=== PATIENT | female | born 1985 ===

== ENCOUNTER 2017-08-13 10:33 | Inpatient (IN) | payer MEDICAID, OTHER ==
[2017-08-13 10:59] VITALS: BMI 21.4
[2017-08-13] MEDS: Lactated Ringer's 1,000 ML IV SCH ×2 (11:30→12:00)
[2017-08-13 11:58] LABS: BASO # 0.1 K/uL (0.0-0.2); BASO % 0.4 % (0.0-2.0); EOS % 0.1 % (0.0-4.0); LYMPH # 1.6 K/uL (1.0-4.3); LYMPH % 12.8 % (20.0-40.0); MEAN CELL VOLUME 81.2 fl (81.0-99.0); MEAN CORPUSCULAR HEMOGLOBIN 26.3 pg (27.0-31.0); MEAN CORPUSCULAR HGB CONC 32.4 g/dL (33.0-37.0); MEAN PLATELET VOLUME 8.8 fl (7.2-11.7); MONO # 0.7 K/uL (0.0-0.8); MONO % 5.7 % (0.0-10.0); NEUT # 9.8 K/uL (1.8-7.0); NRBC % 0.1 % (0.0-0.0); RED CELL DISTRIBUTION WIDTH 21.5 % (11.5-14.5); WHITE BLOOD COUNT 12.1 K/uL (4.8-10.8)
[2017-08-13] MEDS ORDERED: Lidocaine 1% Inj (20ml) ONE (12:04)
[2017-08-13] MEDS ORDERED: Fentanyl/Bupivacaine HCl 250 ML EPI ONE (13:08)
[2017-08-13 13:52] VITALS: O2SAT 100
[2017-08-13] MEDS ORDERED: Lactated Ringer's 1,000 ML IV SCH ×2 (14:15→18:37)
[2017-08-13] MEDS ORDERED: Benzocaine/Menthol SPRAY TOP PRN ×2 (16:14→18:37)
[2017-08-13] MEDS ORDERED: Oxytocin 30 UNITS in Sodium Chloride 0.9% 500 ML IV ONE ×2 (16:54→17:23)
--- NOTE | 2017-08-13 17:16 | OBPN ---
Datetime: 08/13/2017 12:28 IP Progress Impression: Normal progression of labor Pool Provider: Negative Membranes, Provider: Intact Contraction Comments Provider: + Gestation - Est Wks by US: 39.0 Presentation-Admit: Vertex IP Progress Note Comment: Contacted [facility], spoke to Rosalinda in Women 's Services and requested records to be faxed over. Asked for GBS status over the phone, was informed it was not done. Annette PGY3 14:10 contacted by RN for patient experiencing palpitations and dizziness, bout of tachycardia in 140s which resolved within the minute. Patient was evaluated at bedside, states h/o panic attacks and multiple ED visits during current p regnancy to [facility] for similar complaint, last visit 1 month ago around 34 wks GA. Not on any medicatio n, denies h/o cardic issues. Denies cp, dizziness, sob, focal weakness at present time. O: VS normotensive, afebrile, normal rate (70s) O2 sat 98 on RA A/P Pt. stable at present time, good O2 sat, VSS, Sx resolved discussed with Dr. Fitch: EKG ordered, hospitalist consult spoke to hospitalist Dr. Vasques, will evaluate. Annette PGY3 Ob Hospitalist on-call...aware of above. KATERINE NICHD Accel Fetus A IP Provider: 15X15 FHR Category Provider Fetus A: Category I NICHD Variability Prov Fetus A: Moderate 6-25bpm Dilatation, Provider: 4-5 Effacement, Provider: 80 Station, Provider: -1
--- NOTE | 2017-08-13 17:18 | OBDS ---
DELIVERY PERSONNEL Nurse Firearms Specialist Certified: rolando Delivery Doctor: DR Fitch Scrub Nurse: rolando Front End Manager: SALLIE Espino and MARIA ELENA Torres Anesthesiologist: DR De Jesus Sales Team Recruiter: rolando Resident: DR Bryant MATERNAL INFORMATION Delivery Anesthesia: Local; Epidural Medications in Delivery: pitocin Estimated Blood Loss (ml): 200 Placenta Cultured: No RN Comments: to alive baby girl ; 9/9 ;term see MD's notes Provider Comments: Prepartum Dx: at term in labor : same with delivery of live female infact apgars, 9,9 2690g Normal spontaneous vaginal delivery of live female position over intact perineum with epidural ane sthesia. Head was delivered in a controlled fashion. Infact was bulb suctioned at perineum. Loose nuchal cord was noted and reduced without difficulty. Compound presentation of left arm noted, anterior and posterior shoulders were delivered without dif ficulty. Spontaneous delivery of placenta with 3-vessel cord. Estimated blood loss [address] Fitch supervised the delivery. Annette PGY3 OB Hospitalist on-call. With PGY#w, I was present and attended ilia GARCIAS LABOR SUMMARY EDC: 08/20/2017 00:00 No. Babies in Womb: 1 Attempted: No Labor Anesthesia: Epidural LABOR INFORMATION Onset of Labor: 08/13/2017 12:00 Complete Dilatation: 08/13/2017 15:15 Oxytocin: N/A Group B Beta Strep: unknown Antibiotics # of Doses: 0 Antibiotics Time of Last Dose: 0 MEMBRANES Membranes Rupture Method: Spontaneous Rupture of Membranes: 08/13/2017 15:10 Length of Rupture (hrs): -167.20 Amniotic Fluid Color: Clear Amniotic Fluid Amount: Moderate Amniotic Fluid Odor: Normal STAGES OF LABOR Stage 1 hrs: 3 Stage 1 min: 15 Stage 2 hrs: -167 Stage 2 min: -17 Stage 3 hrs: 168 Stage 3 min: 7 Total Time in Labor hrs: 4 Total Time in Labor min: 5 VAGINAL DELIVERY Episiotomy: None Laceration Extension: N/A Laceration Type: None Other Laceration: na Laceration Repair: na Initial Vag Sponge Count: 6 Final Vag Sponge Count: 6 Initial Vag Sharps Count: 0 Final Vag Sharps Count: 0 Sharps Count Correct: N/A Count Comment: correct BABY A INFORMATION Delivery Date/Time: 08/06/2017 15:58 Method of Delivery: Vaginal Born in Route : No : N/A Forceps: N/A Vacuum Extraction: N/A Shoulder Dystocia : No SHOULDER DYSTOCIA BABY A Delivery Date/Time: 08/06/2017 15:58 PRESENTATION/POSITION BABY A Presentation: Cephalic Cephalic Presentation: Vertex Vertex Position: Left Occipital Anterior Breech Presentation: N/A PLACENTA INFORMATION BABY A Placenta Delivery Time : 08/13/2017 16:05 Placenta Method of Delivery: Spontaneous Placenta Status: Delivered SCORES BABY A Heart Rate 1 min: >100 bpm Resp Effort 1 min: Good Cry Reflex Irritability 1 min: Cough or Sneeze or Pulls Away Muscle Tone 1 min: Active Motion Color 1 min: Body [place], Extremities Blue SCORE 1 MIN: 9 Heart Rate 5 min: >100 bpm Resp Effort 5 min: Good Cry Reflex Irritability 5 min: Cough or Sneeze or Pulls Away Muscle Tone 5 min: Active Motion Color 5 min: Body [place], Extremities Blue SCORE 5 MIN: 9 INFORMATION BABY A Gestational Age at Delivery: 39.0 Gestational Status: Term Outcome : Liveborn Condition : Stable Sex: Male IDENTIFICATION/MEDS BABY A ID Band Number: [id number] ID Band Location: Left Leg; Left Arm CORD INFORMATION BABY A No. Cord Vessels: 3 Nuchal Cord : Around Neck x1, Loose with compound presentation left hand Nuchal Cord Other: none True Knot: na Infant Cord pH Baby Arterial: na Cord pH Baby Venous: na Cord Blood Taken: Yes Banking/Donate Info: na
--- NOTE | 2017-08-13 17:18 | OBADHP ---
Datetime: 08/13/2017 12:28 Admit Comment, IP Provider: presenting at 39 weeks ( INDER 08/20/17, by first trim US per patie nt) due to ctx since this AM at 10. Ctx are currently 5 min apart per patient. Denies LOF, ROM. Stat es + FM. O: VSS CV S1S2 Pulm CTA BL Abd gravid, uterus non tender cervix: 4-5 cm, 70%, -2 A/P presenting at 39 weeks IUP in labor - cont monitor - bedside US: position vertex - admit to unit - initiate labor protocol Annette PGY3 OB Hospitalist on-call. At 11am, I saw and examined this pt. Previous x 3 at term. in labor ...PNC at [facility] but she did not bring records. She states that all previous tests were negative. Her is unable to bring papers at this time. Contact [facility] Observe labor progress...pain managment/labor and delivery discused with pt PMH: denies; PSH: denies; POBGYNH: x 3 (one ); no STD; NKA; PSoH: denies smoking ETOH drugs. Pelvic Type - PN: Adequate Extremities - PN: Normal Abdomen - PN: Normal Back - PN: Normal Breast - PN: Not Done Lungs - PN: Normal Heart - PN: Normal Thyroid - PN: Normal Neurologic - PN: Normal HEENT - PN: Normal General - PN: Normal Presentation-Admit: Vertex Membranes, Provider: Intact Contraction Comments Provider: + Comments, ACOG Physical Exam: cervix: 4-5 cm Gestation - Est Wks by US: 39.0 Pool Provider: Negative IP Chief Complaint: Uterine contractions NICHD Variability Prov Fetus A: Moderate 6-25bpm NICHD Accel Fetus A IP Provider: 15X15 FHR Category Provider Fetus A: Category I Dilatation, Provider: 4-5 Effacement, Provider: 80 Station, Provider: -1 Genitourinary Exam: Normal DTRs - PN: Normal EGA AdmitDate IP: 39.0 IP Adm Impression: Term, intrauterine ; Active labor; Intact Membranes IP Admit Plan: Admit to unit; Initiate labor protocol
--- NOTE | 2017-08-13 17:21 | OBPPN ---
Datetime: 08/13/2017 16:38 PP Pain Prov: Within normal limits PP Impression Prov: Normal progression PP Plan Prov: Continue present management PP Progress Note Prov: Records were faxed over from [facility] after the deliver: reviewed, GBS + urine culture noted from March 2017 Train Electronic Technician and attending notified of mother's GBS status Annette PGY3 OB hospitaliston-call: I was made aware of records after it came ...Peds notified. Moth er aware as well Vital Signs Provider PP: Reviewed
--- NOTE | 2017-08-13 20:35 | CP.PCM.CON ---
History of Present Illness - History of Present Illness History of Present Illness: patient was seen Chief Complaint : palpitation, tachycardia HPI : 32 y/o female , no significant PMH, 39 wks , was in labor. I was asked to see patient because of an episode of tachycardia to 140 during labor . Patient states that she was in labor at the time it happened and she was having some contractions when she suddenly felt palpitations and was noted to have a HR of 140 for less than a minute. She denies chest pain, no SOB . She denies intake of any medication at home , no drugs nor alcohol intake. She states that even prior to the she would occasionally feel palpitations w/c would just suddenly come and resolve by itself. Denies any Hx of any cardiac proble. 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 Review of Systems - Review of Systems All systems: reviewed and no additional remarkable complaints except - Constitutional Constitutional: absent: Chills, Fever - EENT Eyes: absent: Blurred Vision, Change in Vision Nose/Mouth/Throat: absent: Nasal Congestion, Nasal Discharge - Cardiovascular Cardiovascular: Palpitations, Rapid Heart Rate. absent: Chest Pain, Chest Pain at Rest, Diaphoresis, Dyspnea, Dyspnea on Exertion, Lightheadedness, Orthopnea, Paroxysmal Nocturnal Dyspnea - Respiratory Respiratory: absent: Cough, Dyspnea, Dyspnea on Exertion - Gastrointestinal Gastrointestinal: absent: Diarrhea, Nausea, Vomiting - Genitourinary Genitourinary: absent: Difficulty Urinating, Dysuria, Freq UTI - Reproductive: Female Additional comments: 39 wks - Musculoskeletal Musculoskeletal: absent: Abnormal Gait, Arthralgias, Muscle Weakness - Integumentary Integumentary: absent: Pruritus, Rash - Neurological Neurological: absent: Dizziness, Focal Weakness, Headaches, Paresthesias - Psychiatric Psychiatric: absent: Confusion, Depression, Mood Swings, Suicidal Ideation Additional comments: occasional panic attacks - Endocrine Endocrine: absent: Polydipsia, Polyphagia, Polyuria - Hematologic/Lymphatic Hematologic: absent: Easy Bleeding, Easy Bruising Past Patient History - Infectious Disease Hx of Infectious Diseases: None - Tetanus Immunizations Tetanus Immunization: Unknown - Past Medical History & Family History Past Medical History?: No Past Family History: Reviewed and not pertinent - Past Social History Smoking Status: Never Smoked Chewing Tobacco Use: No Cigar Use: No Alcohol: None Drugs: Denies Home Situation {Lives}: With Family - CARDIAC Hx Cardiac Disorders: No - PULMONARY Hx Respiratory Disorders: No - NEUROLOGICAL Hx Neurological Disorder: No - HEENT Hx HEENT Problems: No - RENAL Hx Chronic Kidney Disease: No - ENDOCRINE/METABOLIC Hx Endocrine Disorders: No - HEMATOLOGICAL/ONCOLOGICAL Hx Blood Disorders: No - INTEGUMENTARY Hx Dermatological Problems: No - MUSCULOSKELETAL/RHEUMATOLOGICAL Hx Musculoskeletal Disorders: No - GASTROINTESTINAL Hx Gastrointestinal Disorders: No - GENITOURINARY/GYNECOLOGICAL Hx Genitourinary Disorders: No : 4 Para: 4 - PSYCHIATRIC Hx Psychophysiologic Disorder: No - SURGICAL HISTORY Hx Surgeries: No Other/Comment: 34 vaginal deliveries Meds Allergies/Adverse Reactions: Allergies Allergy/AdvReac Type Severity Reaction Status Date / Time No Known Allergies Allergy Verified 08/24/14 04:30 - Medications Medications: Current Medications Benzocaine/Menthol (Dermoplast) 1 sprays TOP PRN PRN PRN Reason: Perineal Discomfort Lactated Ringer's (Lactated Ringer's) 1,000 mls @ 125 mls/hr IV .Q8H TUAN Oxytocin (Pitocin 20 Units In Lr) 1,000 mls @ 125 mls/hr IV .Q8H TUAN PRN Reason: Protocol Ibuprofen (Motrin Tab) 600 mg PO Q6 PRN PRN Reason: Pain, Mild (1-3) Influenza Virus Vaccine (Afluria (Pf)(18yr & Older)) 0.5 ml IM .ONCE ONE Stop: 08/14/17 10:01 Multivitamins/Minerals (Therapeutic-M Tab) 1 tab PO DAILY TUAN Sennosides (Senokot Tab) 17.2 mg PO HS TUAN Physical Exam - Constitutional Appears: No Acute Distress - Head Exam Head Exam: ATRAUMATIC, NORMAL INSPECTION, NORMOCEPHALIC - Eye Exam Eye Exam: EOMI, Normal appearance, PERRL Pupil Exam: NORMAL ACCOMODATION - ENT Exam ENT Exam: Mucous Membranes Moist, Normal External Ear Exam - Neck Exam Neck exam: Positive for: Full Rom. Negative for: Meningismus - Respiratory Exam Respiratory Exam: NORMAL BREATHING PATTERN. absent: Rales, Wheezes, Respiratory Distress - Cardiovascular Exam Cardiovascular Exam: REGULAR RHYTHM, +S1, +S2 - GI/Abdominal Exam GI & Abdominal Exam: Distended, Normal Bowel Sounds, Tenderness (mild tenderness ) Additional comments: - Extremities Exam Extremities exam: Positive for: full ROM, normal capillary refill, normal inspection, pedal edema, pedal pulses present. Negative for: calf tenderness - Back Exam Back exam: FULL ROM. absent: CVA tenderness (L), CVA tenderness (R) - Neurological Exam Neurological exam: Alert, CN II-XII Intact, Oriented x3, Reflexes Normal - Psychiatric Exam Psychiatric exam: Normal Affect, Normal Mood - Skin Skin Exam: Dry, Normal Color, Warm Results - Vital Signs Recent Vital Signs: Last Vital Signs Temp 98.4 F 08/13/17 13:51 Pulse 73 08/13/17 13:51 Resp 18 08/13/17 13:51 BP 109/58 L 08/13/17 13:51 Pulse Ox 100 08/13/17 13:51 - Labs Result Diagrams: 08/14/17 06:20 08/14/17 07:13 Labs: Laboratory Results - last 24 hr 08/13/17 08/13/17 11:54 11:54 WBC 12.1 H RBC 4.43 Hgb 11.6 L Hct 36.0 MCV 81.2 MCH 26.3 L MCHC 32.4 L RDW 21.5 H Plt Count 179 MPV 8.8 Neut % (Auto) 81.0 H Lymph % (Auto) 12.8 L [place] % (Auto) 5.7 Eos % (Auto) 0.1 Baso % (Auto) 0.4 Neut # 9.8 H Lymph # 1.6 [place] # 0.7 Eos # 0.0 Baso # 0.1 Blood Type B POSITIVE Antibody Screen Negative BBK History Checked Patient has bt - EKG Data EKG Interpreted by: Myself EKG shows normal: Sinus rhythm Rate: Normal Assessment & Plan (1) Tachycardia Status: Acute (2) Intermittent palpitations Status: Acute (3) state Status: Acute - Assessment and Plan (Free Text) Assessment: 32 y/o lady seen . I was consulted because of an episode of tachycardia and palpitation during labor. EKG : NSR, rate=71, nonsp T change ( T inversion II and V2) (1) Tachycardia Status: Acute (2) Intermittent palpitations Status: Acute (3) state Status: Acute - tachycardia prob due to physiologic changes during , labor and due to pain - however due to previous hx of palpitations , will check electrolytes, Thyroid function test, check CBC for anemia and will also do ECHO Thank you for this consult. Will ff up.
[2017-08-13] MEDS ORDERED: Nasal Spray(Ocean spray) NAS PRN (22:06)
[2017-08-14] MEDS ORDERED: Influenza Vaccine 18yr & older 0.5 ML/45 MCG SYR IM ONE ×2 (06:01→10:00)
[2017-08-14 06:45] LABS: BASO % 0.3 % (0.0-2.0); EOS # 0.1 K/uL (0.0-0.7); EOS % 0.5 % (0.0-4.0); HEMATOCRIT 27.9 % (34.0-47.0); LYMPH % 17.8 % (20.0-40.0); MEAN CELL VOLUME 81.6 fl (81.0-99.0); MEAN CORPUSCULAR HEMOGLOBIN 26.4 pg (27.0-31.0); MEAN CORPUSCULAR HGB CONC 32.3 g/dL (33.0-37.0); MEAN PLATELET VOLUME 8.8 fl (7.2-11.7); MONO # 0.6 K/uL (0.0-0.8); MONO % 5.7 % (0.0-10.0); NEUT # 8.6 K/uL (1.8-7.0); NEUT % 75.7 % (50.0-75.0); RED CELL DISTRIBUTION WIDTH 21.2 % (11.5-14.5); WHITE BLOOD COUNT 11.4 K/uL (4.8-10.8)
--- NOTE | 2017-08-14 08:06 | CARD ---
APPROVED REPORT EKG Measurement Heart [id number] <Conclusion> Normal sinus rhythm with sinus arrhythmia Normal ECG
[2017-08-14 08:27] LABS: ALKALINE PHOSPHATASE 151 U/L (38-126); ALT/SGPT 23 U/L (9-52); AST/SGOT 39 U/L (14-36); BILIRUBIN,TOTAL 0.1 mg/dl (0.2-1.3); BLOOD UREA NITROGEN 4 mg/dl (7-17); CALCIUM 7.8 mg/dL (8.4-10.2); CARBON DIOXIDE 20 mmol/L (22-30); CHLORIDE 113 mmol/L (98-107); GFR AFRICAN-AMERICAN > 60; GLUCOSE,RANDOM 96 mg/dL (65-105); POTASSIUM 3.5 MMOL/L (3.6-5.0); SODIUM 140 mmol/l (132-148); TOTAL PROTEIN 5.1 G/DL (6.3-8.2)
[2017-08-14 08:43] LABS: T4 8.15 ug/dl (5.5-11.0)
[2017-08-14 08:44] LABS: ALB/GLOB RATIO 0.9 (1.0-2.1)
[2017-08-14 08:57] LABS: THYROID STIMULATING HORMONE 0.24 mIU/ML (0.46-4.68)
[2017-08-14] MEDS ORDERED: Multivitamin With Minerals Tab PO SCH (09:00)
[2017-08-14] MEDS: Multivitamin With Minerals Tab PO SCH (09:08)
--- NOTE | 2017-08-14 09:59 | CP.PCM.PN ---
<ValdiviaTanja - Last Filed: 08/14/17 11:36> Subjective - Date & Time of Evaluation Date of Evaluation: 08/14/17 Time of Evaluation: 09:59 - Subjective Subjective: Patient seen and examined this morning at bedside, no acute ovenight events, day 1. Patient reports feeling fine, states good appetite and good sleep during night. Denies nausea, vomiting, dizziness, palpitations, blurred vision, headache, chest pain or sob, tremors, heat or cold intolerance, no abdominal pain, urinary symptoms. Objective - Vital Signs/Intake and Output Vital Signs (last 24 hours): Temp Pulse Resp BP Pulse Ox 98.4 F 73 18 109/58 L 100 08/13/17 13:51 08/13/17 13:51 08/13/17 13:51 08/13/17 13:51 08/13/17 13:51 - Medications Medications: Current Medications Benzocaine/Menthol (Dermoplast) 1 sprays TOP PRN PRN PRN Reason: Perineal Discomfort Last Admin: 08/13/17 21:53 Dose: 1 sprays Ibuprofen (Motrin Tab) 600 mg PO Q6 PRN PRN Reason: Pain, Mild (1-3) Last Admin: 08/13/17 21:53 Dose: 600 mg Multivitamins/Minerals (Therapeutic-M Tab) 1 tab PO DAILY TUAN Last Admin: 08/14/17 09:08 Dose: 1 tab Sennosides (Senokot Tab) 17.2 mg PO HS TUAN Last Admin: 08/13/17 21:53 Dose: 17.2 mg Sodium Chloride (Prentiss Nasal [place]) 2 sprays ERLINDA Q4 PRN PRN Reason: Nasal congestion Last Admin: 08/14/17 04:08 Dose: 2 sprays - Labs Labs: 08/14/17 06:20 08/14/17 07:13 - Constitutional Appears: Well, No Acute Distress - Head Exam Head Exam: NORMAL INSPECTION - Eye Exam Eye Exam: EOMI, PERRL Pupil Exam: NORMAL ACCOMODATION - ENT Exam ENT Exam: Mucous Membranes Moist - Neck Exam Neck Exam: Full ROM - Respiratory Exam Respiratory Exam: Clear to Ausculation Bilateral, NORMAL BREATHING PATTERN. absent: Rhonchi, Wheezes - Cardiovascular Exam Cardiovascular Exam: REGULAR RHYTHM, +S1, +S2. absent: Tachycardia Additional comments: BP 110/70, HR 80 - GI/Abdominal Exam GI & Abdominal Exam: Soft, Normal Bowel Sounds. absent: Tenderness Additional comments: Uterus at umbilicus level - Extremities Exam Extremities Exam: Full ROM. absent: Calf Tenderness, Pedal Edema - Neurological Exam Neurological Exam: Alert, Awake, CN II-XII Intact, Oriented x3 - Psychiatric Exam Psychiatric exam: Normal Affect - Skin Skin Exam: Dry, Intact, Warm Assessment and Plan - Assessment and Plan (Free Text) Assessment: 32 y/o F patient day 1. Consulted by an episode of tachycardia and palpitation during labor. EKG : NSR, rate=71, nonsp T change ( T inversion II and V2) Tachycardia prob due to physiologic changes during , labor and due to pain Asymptomatic Intermittent palpitations previous hx of palpitations TSH 0.24 low, T3 0.91 low, T4 8.15 normal cbc wnl Echo pending state management by GREEN BUILDING DESIGN SPECIALIST <Sussy Vasques - Last Filed: 08/14/17 15:15> Objective - Vital Signs/Intake and Output Vital Signs (last 24 hours): Temp Pulse Resp BP Pulse Ox 98.4 F 73 18 109/58 L 100 08/13/17 13:51 08/13/17 13:51 08/13/17 13:51 08/13/17 13:51 08/13/17 13:51 - Medications Medications: Current Medications Benzocaine/Menthol (Dermoplast) 1 sprays TOP PRN PRN PRN Reason: Perineal Discomfort Last Admin: 08/13/17 21:53 Dose: 1 sprays Ibuprofen (Motrin Tab) 600 mg PO Q6 PRN PRN Reason: Pain, Mild (1-3) Last Admin: 08/13/17 21:53 Dose: 600 mg Multivitamins/Minerals (Therapeutic-M Tab) 1 tab PO DAILY TUAN Last Admin: 08/14/17 09:08 Dose: 1 tab Sennosides (Senokot Tab) 17.2 mg PO HS TUAN Last Admin: 08/13/17 21:53 Dose: 17.2 mg Sodium Chloride (Prentiss Nasal [place]) 2 sprays ERLINDA Q4 PRN PRN Reason: Nasal congestion Last Admin: 08/14/17 04:08 Dose: 2 sprays - Labs Labs: 08/14/17 06:20 08/14/17 07:13 Assessment and Plan (1) Tachycardia Status: Acute (2) Intermittent palpitations Status: Acute (3) state Status: Acute Attending/Attestation - Attestation I have personally seen and examined this patient.: Yes I have fully participated in the care of the patient.: Yes I have reviewed all pertinent clinical information, including history, physical exam and plan: Yes Notes (Text): Tachycardia?Palpitaions prob due to physiologic changes during , labor and due to pain Asymptomatic at present Echo: normal EF, wall motion, normal valves Low TSH unlikely hyperthyroidism since T4 is normal and T3 is low rpt TSH as an outpt - ff up with PMD on discharge.
--- NOTE | 2017-08-14 11:51 | CARD ---
APPROVED REPORT EXAM: Two-dimensional and M-mode echocardiogram with Doppler and color Doppler. Other Information Quality : GoodRhythm : NSR INDICATION Abnormal EKG/Arrhythmia Surgery/Intervention : Yes 2D DIMENSIONS IVSd0.71 (0.7-1.1cm)LVDd4.17 (3.9-5.9cm) LVOT Diameter2.17 (1.8-2.4cm)PWd0.65 (0.7-1.1cm) IVSs1.25 (0.8-1.2cm)LVDs2.56 (2.5-4.0cm) FS (%) 38.6 %PWs1.30 (0.8-1.2cm) M-Mode DIMENSIONS Left Atrium (MM)3.03 (2.5-4.0cm)IVSd0.76 (0.7-1.1cm) Aortic Root2.89 (2.2-3.7cm)LVDd4.54 (4.0-5.6cm) Aortic Cusp Exc.1.89 (1.5-2.0cm)PWd0.74 (0.7-1.1cm) IVSs1.19 cmFS (%) 35 % LVDs2.96 (2.0-3.8cm)PWs1.05 cm Mitral Valve MV E Ixjwdqbh154.8cm/sMV DECEL [id number] A Qjaymvgg82.8cm/s MV SWO09hwR/A ratio2.5MVA (PHT)4.95cm2 TDI Lateral E' Peak V22.81cm/sMedial E' Peak V15.81cm/sE/Lateral E'4.7 E/Medial E'6.8 Pulmonary Valve PV Peak Klghsrls93.1cm/s LEFT VENTRICLE The left ventricle is normal size. There is normal left ventricular wall thickness. The left ventricular function is normal. The left ventricular ejection fraction is within the normal range. The Ejection Fraction is 65-70%. There is normal LV segmental wall motion. The left ventricular diastolic function is normal. RIGHT VENTRICLE The right ventricle is normal size. The right ventricular systolic function is normal. ATRIA The left atrium size is normal. The right atrium size is normal. AORTIC VALVE The aortic valve is normal in structure. No aortic regurgitation is present. There is no aortic valvular stenosis. MITRAL VALVE The mitral valve is normal in structure. There is no mitral valve stenosis. There is no mitral valve regurgitation noted. TRICUSPID VALVE The tricuspid valve is normal in structure. There is no tricuspid valve regurgitation noted. PULMONIC VALVE The pulmonary valve is normal in structure. There is no pulmonic valvular regurgitation. GREAT VESSELS The aortic root is normal in size. The IVC is normal in size and collapses >50% with inspiration. PERICARDIAL EFFUSION The pericardium appears normal. <Conclusion> The left ventricle is normal size. The left ventricular function is normal. The left ventricular ejection fraction is within the normal range. The Ejection Fraction is 65-70%.
--- NOTE | 2017-08-14 13:34 | RAD ---
HISTORY: Quant F positive COMPARISON: 06/12/2013 TECHNIQUE: Chest PA and lateral FINDINGS: LUNGS: No active pulmonary disease. PLEURA: No significant pleural effusion identified. No pneumothorax apparent. CARDIOVASCULAR: Normal. OSSEOUS STRUCTURES: No significant abnormalities. VISUALIZED UPPER ABDOMEN: Normal. OTHER FINDINGS: None. IMPRESSION: No active disease. No significant interval change compared to the prior examination(s).
--- NOTE | 2017-08-14 16:04 | OBPPN ---
Datetime: 08/14/2017 06:34 PP Pain Prov: Within normal limits PP Nausea Prov: Denies PP Flatus Prov: Yes PP BM Prov: Yes PP Breasts Prov: Normal PP Heart Prov: Normal PP Lungs Prov: Normal PP Abdomen/Uterus Prov: Normal PP Lochia Prov: Normal PP Vulva/Perineum Prov: Normal PP CVA Tenderness Prov: Normal PP Extremities Prov: Normal PP C/S Incision Prov: Not Applicable PP Progress Prov: Normal PP Impression Prov: Normal progression PP Plan Prov: Continue present management PP Progress Note Prov: PPD1 S: pt seen and examined bedside this AM. PPD1, s/p NVD. No acute overnight events ecxept stuffy no se (pt was given saline sprey). Admits mild pain. Pt is eating liquid diet. Ambulating, voiding w/out any difficulty. Patient is breast and bottle feeding her baby. +/- gas, BM. Denies fever, chills, he adache, chest pain, dyspnea, palpitations, n/v/d/c and remains afebrile. O: VS stable GEN: NAD Cardio: S1S2 no M/G/R Resp: vesicular breathing b/l Abdomen: no tenderness to palpation. BS+, Fundus is firm, at the umbilicus Neuro: AAO x 3 Ext: no edema noted, no calf tenderness Assessment/Plan: 32 y/o female, delivered @ 39 wks to a female infant via NVD on 08/13/17. Doing well PPD1. OOB with caution Percocet 5/325mg 1-2 tablets po q6 for mod/sev pain Ibuprofen 600mg 1 tab Encourage and ambulation Flu vaccine tomorrow Senakot 17.2mg PO qHS --- Inna Garcia, PGY I The patient was seen with the resident I agree with the note IP PP Procedures: None Vital Signs Provider PP: Reviewed; Within Normal Limits
[2017-08-15] MEDS: Multivitamin With Minerals Tab PO SCH (08:13)
[2017-08-15 18:16] VITALS: BP 115/73; PULSE 76; RESP 20; TEMP 97.6
== END 2017-08-15 12:50 | disposition home or self-care (01) | DRG 775 ==
LOC: H.EROB2 10:33 → H.L&D 11:06 → H.OB/GYN 18:30
PROVIDERS: ADMIT Obstetrics & Gynecology; ATTEND Obstetrics & Gynecology
PROC: 10E0XZZ Delivery of Products of Conception, External Approach (ICD-10-PCS; principal; 2017-08-13)
PROC: 4A1HXCZ Monitoring of Products of Conception, Cardiac Rate, External Approach (ICD-10-PCS; 2017-08-13)
DX: O69.81X0 Labor and delivery complicated by cord around neck, without compression, not applicable or unspecified (principal); O32.6XX0 Maternal care for compound presentation, not applicable or unspecified; Z37.0 Single live birth; Z3A.39 39 weeks gestation of pregnancy